=== PATIENT | male | born 1945 | race Native Hawaiian/Other Pacific Islander ===

== ENCOUNTER 2020-06-14 16:39 | Emergency (ER) | payer OTHER ==
[~2020-06-14] VITALS: Ht 182.9 cm; Wt 77.1 kg
[2020-06-14 17:03] LABS: PLATELET COUNT 146 K/uL (142-355)
[2020-06-14 18:25] LABS: POTASSIUM 4.3 mmol/L (3.6-5.2)
[2020-06-14 19:15] VITALS: BP 163/78; TEMP 98.5
[2020-06-14] MEDS ORDERED: B-12500 MCG PO (23:31)
[2020-06-14] MEDS ORDERED: AMLODIPINE BESYLATE PO (23:32)
[2020-06-14] MEDS ORDERED: PANTOPRAZOLE 40MG TA PO (23:32)
[2020-06-14] MEDS ORDERED: SEROQUEL25 MG PO (23:33)
[2020-06-14] MEDS ORDERED: THIA100T8 PO (23:34)
== END 2020-06-14 19:15 | disposition other institution (70) ==
LOC: ED 16:39
PROVIDERS: Family Medicine
DX: F03.91 Unspecified dementia, unspecified severity, with behavioral disturbance (principal); Z11.52 Encounter for screening for COVID-19; Z04.6 Encounter for general psychiatric examination, requested by authority
CPT/HCPCS: 80053; 81000; 85027; 87635; 93005; 99283; U0003